=== PATIENT | female | born 1995 | race Caucasian/White ===

== ENCOUNTER → 2022-10-17 | Outpatient (CLI) | payer OTHER ==
--- NOTE | 2022-10-17 11:24 | USB ---
Reason for Exam: Clinical finding. Technique: Method: Whole Breast Handheld. Findings: The whole breast of both breasts, the axilla of both breasts and the retroareolar of both breasts were scanned. A complete US of all four quadrants of the breast and retro-areolar region were reviewed. Technologist garza a 3 mm oval hypoechoic area or lesion at level of the nipple in the left breast to small to further characterize presumed benign. Remainder of bilateral breast unremarkable. Overall Assessment: Negative, BI-RAD 1 Management: Screening Mammogram of both breasts at age 41. Manage patient symptoms clinically. Results were given to the patient verbally at the time of exam. Electronically signed and approved by: Austin Handley M.D.
== END | disposition home or self-care (01) ==
LOC: RADUSWWP 10:47
PROVIDERS: ATTEND Family Medicine
DX: N64.4 Mastodynia (principal)

== ENCOUNTER → 2022-10-28 | Outpatient (CLI) | payer OTHER ==
[2022-10-28 11:20] VITALS: BP 121/77; PULSE 89; RESP 16; TEMP 98.1
--- NOTE | 2022-10-28 12:11 | P.GSHP ---
History of Present Illness H&P Date: 10/28/22 Chief Complaint: breast pain Jaelyn is a 27 year old white female seen in consultation for Dr. Cohen with a complaint of breast pain. She had a whole breast bilateral ultrasound done on 10-17-22 which was BIRAD 1. She complains of bilateral stabbing breast pain. It is worse with anything pressing against her breast. It feels like many little needle sticking into her breast. This has been occuring for about 1 year. She is not complaining of any nipple discharge. It is worse before her periods. She did not have any trauma to her breast. She has never had any surgery on her breast. She has not had any infection in the breast. The pain is constant, and radiates from the breast to the nipples. caffiene: 3 cans of pepsi/day was drinking bassett pepsi much more; cut down about 6 months ago coffee 1 cup/day nicotine: 1/2 PPD for 10 years chocolate: occasional BCP: 3 months ago and this made the pain worse DEPO shot 9 months; Family History: father: colon cancer at 41 paternal grandmother: stomach cancer paternal great grand father: brain cancer paternal great aunt: breast cancer paternal great aunt: ? type of cancer Hormonal history: Menarche:2 (1 ) breast fed:no, age at first : 18 periods irregular Surgical History: 2016 circlog/removed D&C Medical History: hypothyroid Social History: nicotine: 1/2 PPD alcohol: none drugs: Marijuana daily - Constitutional Constitutional: Reports sweats, Denies chills, Denies fever - EENT Eyes: denies blurred vision, denies pain Ears: bilateral: decreased hearing, deny: tinnitus Ears, nose, mouth and throat: Reports headache, Reports sore throat - Breasts Breasts: bilateral: as per HPI - Cardiovascular Cardiovascular: Denies chest pain, Denies shortness of breath - Respiratory Respiratory: Reports cough - Gastrointestinal Gastrointestinal: Denies abdominal pain, Denies diarrhea, Denies nausea, Denies vomiting - Genitourinary (Female) Genitourinary: Denies dysuria, Denies hematuria - Menstruation Menstruation: Reports cycle variable - Musculoskeletal Musculoskeletal: Reports myalgias - Integumentary Integumentary: Denies pruritus, Denies rash - Neurological Neurological: Reports weakness, Denies numbness - Psychiatric Psychiatric: Reports anxiety, Denies depression - Endocrine Endocrine: Reports fatigue, Denies weight change - Hematologic/Lymphatic Comment: none - Allergic/Immunologic Allergic/Immunologic: Reports seasonal allergies Past Medical History History of Any Multi-Drug Resistant Organisms: None Reported Smoking Status: Current every day smoker Medications and Allergies Home Medications Medication Instructions Recorded Confirmed Type Levothyroxine Sodium 200 mcg PO DAILY 10/28/22 10/28/22 History Allergies Allergy/AdvReac Type Severity Reaction Status Date / Time latex Allergy Rash/Hives Unverified 10/28/22 11:15 Surgical - Exam Vital Signs Temp Pulse Resp BP Pulse Ox 98.1 F 89 16 121/77 98 10/28/22 11:16 10/28/22 11:16 10/28/22 11:16 10/28/22 11:16 10/28/22 11:16 BMI: 19.8 - General moderate distress - Eyes normal ocular movement - Neck trachea midline - Respiratory normal respiratory effort, clear to auscultation - Cardiovascular Rhythm: regular Heart Sounds: normal: S1, S2 - Abdomen Abdomen: soft, non tender, no guarding, no rigid, no rebound - Integumentary normal turgor - Neurologic no disoriented, no combative - Musculoskeletal normal gait, normal posture - Psychiatric oriented to time, oriented to person, oriented to place, speech is normal, m reyes intact Breast Exam: BRA: 36A inspection: bilateral grade 1 ptosis Patient: Right breast: Multiple positional exam tender under the nipple areolar complex fibrocystic changes no dominant masses or nodules of concern Right axilla: No adenopathy of concern Left breast: Multi-positional exam tender under the nipple areolar complex no dominant masses or nodules of concern Left axilla: No adenopathy of concern Results ultrasound results reviewed Assessment and Plan Assessment: Impression: Bilateral mastodynia Hormone dependent at times Patient does use caffeine and nicotine There is nothing which would want interventional biopsy at this time. Plan: recommend life style modification; stop caffiene and nicotine primrose oil CC: Dr. Cohen
== END ==
LOC: WWCWWP 11:04
PROVIDERS: ATTEND Surgery
DX: N64.4 Mastodynia (principal); Z80.0 Family history of malignant neoplasm of digestive organs; Z80.3 Family history of malignant neoplasm of breast; Z80.8 Family history of malignant neoplasm of other organs or systems; Z91.040 Latex allergy status